=== PATIENT | female | born 1960 | race Caucasian/White ===

== ENCOUNTER 2021-01-11 13:57 | Emergency (ER) | payer OTHER ==
[~2021-01-11] VITALS: Ht 165.1 cm; Wt 109.3 kg
[2021-01-11] MEDS ORDERED: METOPROLOL TART25 MG PO (14:07)
[2021-01-11] MEDS ORDERED: ONDANSETRON ODT4 MG PO (14:07)
[2021-01-11] MEDS ORDERED: FUROSEMIDE20 MG PO (14:07)
[2021-01-11] MEDS ORDERED: POTASSIUM CHLO20 ME2 PO (14:07)
[2021-01-11] MEDS ORDERED: ATORVASTATIN CA40 MG PO (14:08)
[2021-01-11] MEDS ORDERED: OXYCODONE HCL5 MG PO (14:08)
[2021-01-11] MEDS ORDERED: PACERONE200 MG PO (14:08)
[2021-01-11] MEDS ORDERED: WARFARIN SODIUM3 MG PO (14:08)
[2021-01-11] MEDS ORDERED: FLUOXETINE HCL10 MG PO (14:09)
[2021-01-11] MEDS ORDERED: TRULICITY1.5 MG/0.5 SQ (14:09)
[2021-01-11] MEDS ORDERED: VENTOLIN HFA18 GM INH (14:09)
[2021-01-11] MEDS ORDERED: VALSARTAN160 MG PO (14:10)
[2021-01-11] MEDS ORDERED: METFORMIN HCL500 M1 PO (14:10)
[2021-01-11] MEDS ORDERED: TRAZODONE HCL150 MG PO (14:10)
--- NOTE | 2021-01-12 07:30 | EKG ---
[facility] [address] [facility] [place], [place] [address] Signed Normal sinus rhythm Normal ECG No previous ECGs available Confirmed by BRIELLE SHANE MD ([id number]) on 01/12/2021 7:30:09 AM Electronically Signed By: BRILELE SHANE MD 01/12/21 0730 PATIENT NAME: TERRY PEREZ Electrocardiogram DATE OF : 58 PHYSICIAN: BRIELLE SHANE MD REPORT #: [id number] REPORT IS CONFIDENTIAL AND NOT TO BE RELEASED WITHOUT AUTHORIZATION
[2021-01-27] MEDS ORDERED: BUSPIRONE HCL10 MG PO (15:33)
== END 2021-01-11 17:40 | disposition home or self-care (01) ==
LOC: ED 13:57
DX: E87.70 Fluid overload, unspecified (principal); R60.0 Localized edema; I10 Essential (primary) hypertension; Z87.891 Personal history of nicotine dependence; Z88.5 Allergy status to narcotic agent; Z79.899 Other long term (current) drug therapy; Z79.01 Long term (current) use of anticoagulants; Z79.84 Long term (current) use of oral hypoglycemic drugs
CPT/HCPCS: 71045; 80048; 85025; 85610; 93005; 93010; 96374; 99285-25; J1940

== ENCOUNTER 2021-09-04 15:39 | Emergency (ER) | payer OTHER ==
[~2021-09-04] VITALS: Ht 165.1 cm; Wt 109.3 kg
[~2021-09-04 15:39] MED LIST: ATORVASTATIN CA40 MG PO; BUSPIRONE HCL10 MG PO; FLUOXETINE HCL10 MG PO; FLUOXETINE HCL20 MG PO; FUROSEMIDE20 MG PO; METFORMIN HCL500 M1 PO; METOPROLOL TART25 MG PO; ONDANSETRON ODT4 MG PO; OXYCODONE HCL5 MG PO; PACERONE200 MG PO; POTASSIUM CHLO20 ME2 PO; TRAZODONE HCL150 MG PO; TRULICITY1.5 MG/0.5 SQ; VALSARTAN160 MG PO; VENTOLIN HFA18 GM INH; WARFARIN SODIUM3 MG PO
== END 2021-09-04 18:49 | disposition home or self-care (01) ==
LOC: ED 15:39
DX: S00.83XA Contusion of other part of head, initial encounter (principal); S09.90XA Unspecified injury of head, initial encounter; I10 Essential (primary) hypertension; E11.9 Type 2 diabetes mellitus without complications; E78.00 Pure hypercholesterolemia, unspecified; Z87.891 Personal history of nicotine dependence; Z88.5 Allergy status to narcotic agent; Z79.899 Other long term (current) drug therapy; Z79.01 Long term (current) use of anticoagulants; W22.8XXA Striking against or struck by other objects, initial encounter
CPT/HCPCS: 36415; 70450; 85610; 99284-25

== ENCOUNTER 2022-04-27 07:20 | Day surgery (SDC) | payer OTHER ==
[~2022-04-27] VITALS: Ht 165.1 cm; Wt 105.0 kg
[~2022-04-27 07:20] MED LIST changes: +ATORVASTATIN CA80 MG PO; +BIOTIN10 MG PO; +COLLAGEN 15001 EACH PO; +DAILY VALUE1 EACH PO; +HYDROCHLOROTHIA25 MG PO; +TRULICITY1.5 MG/0.5 SUB-Q; +VITAMIN C1000 MG PO
--- NOTE | 2022-04-27 09:26 | NUR ---
04/27/22 0926 Molly Soriano 0900 PT ARRIVED IN PACU SLEEPY. ABD SOFT AND PASSING FLATUS. 0915 DR AT BEDSIDE. ALL QUESTIONS ANSWERED. 919 SITTING AT SIDE OF BED GETTING DRESSED. 924 DC INSTRUCTIONS GIVEN.
--- NOTE | 2022-04-27 09:51 | OR ---
[facility] [address] [place], [place] [address] Signed DATE OF OPERATION: 04/27/2022 SURGEON: Dorothy Birmingham MD PREOPERATIVE DIAGNOSES: 1. Positive Cologuard test. 2. History of hyperplastic rectal polyps in 2009 at age 49. POSTOPERATIVE DIAGNOSES: 1. 4 mm polyp at 15 cm (rectosigmoid junction). 2. 4 mm polyp at 25 cm. 3. 5 mm polyp at mid right colon next. 4. 5 mm polyp at proximal transverse colon. 5. 4 mm polyp at 30 cm. 6. 3 mm polyp at 4 cm. 7. Minimal to moderate left-sided diverticulosis. 8. Minimal internal hemorrhoids with associated skin tags. PROCEDURE: Colonoscopy with hot biopsy. ESTIMATED BLOOD LOSS: None. INDICATIONS: Lynn is a 61-year-old obese diabetic female, asked to see me for a followup colonoscopy. She underwent screening colonoscopy in 2009 at the age of 49. She had several small hyperplastic rectal polyps removed. She missed a 10-year followup james because of COVID pandemic. 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 She has been on Coumadin. She has been doing great since her surgery about a year or so ago. More recently, her Cologuard test came back positive. She is also on Coumadin. She has no lower GI complaints. She has no family history of colon cancer or polyps. She was asked to see me in the office. I gave her a pamphlet on colonoscopy. We had reviewed the nature of that test. She understands there is risk including, but not limited to gas bloating, crampy abdominal pain, bleeding, perforation requiring surgery, and missed diagnosis. We did have her hold the Coumadin 4 days prior to the procedure. She was also given preoperative IV antibiotic for her heart valve. She also understands the need for IV conscious sedation. She has done well with Versed and fentanyl in the past. We went ahead and decided to go that route on this occasion. Fortunately, she is easy to pass the scope and she did quite well. Although as she gets older, she might Electronically Signed By: DOROTHY BIRMINGHAM MD 04/27/22 0951 PATIENT NAME: LYNN PEREZ OPERATIVE REPORT DATE OF : 58 REPORT #: [id number] PHYSICIAN: DOROTHY BIRMINGHAM MD PCP: SHILOH ARROYO MD REPORT IS CONFIDENTIAL AND NOT TO BE RELEASED WITHOUT AUTHORIZATION [facility] [address] [place] [id number] Signed have to convert to monitored anesthesia care given her body mass index and her complex past medical history. I did review that with Lynn today as well. She had expressed understanding and wishes to proceed. PROCEDURE NOTE: Lynn was taken into our endoscopy suite and placed in the left lateral decubitus position. She was given 150 mcg of fentanyl and 6 mg of Versed to cover the case. The scope had been passed all around into the cecum under direct visualization of the camera. It took just a little abdominal compression and some additional sedation in order to get the camera into the cecum itself. Her prep was good. We could easily see the appendiceal orifice and the ileocecal valve. The scope was then slowly withdrawn. We took pictures throughout for photodocumentation. We removed the above mentioned polyps with the help of hot biopsy forceps. She does have diverticula in the left sigmoid colon. They are minimal to moderate in size and minimal to moderate in number and scattered about. In the rectum, the scope was retroflexed and she has minimal internal hemorrhoid tissue associated with several small internal anal skin tags. After this, the gas was suctioned out and the colonoscope removed. Lynn tolerated the procedure quite well. RECOMMENDATIONS: I will see Lynn back in my office in 7 to 14 days to review her results. Dorothy Birmingham MD ALB/MODL /[id number] cc: MD Dorothy Bond MD Copies: DOROTHY BIRMINGHAM MD ~ Electronically Signed By: DOROTHY BIRMINGHAM MD 04/27/22 0951 PATIENT NAME: LYNN PEREZ OPERATIVE REPORT DATE OF : 58 REPORT #: [id number] PHYSICIAN: DOROTHY BIRMINGHAM MD PCP: SHILOH ARROYO MD REPORT IS CONFIDENTIAL AND NOT TO BE RELEASED WITHOUT AUTHORIZATION
--- NOTE | 2022-04-29 16:54 | PATH ---
[facility] [address] [place], [place] [address] Signed SPECIMEN(S): A RECTOSIGMOID COLON POLYP SPECIMEN(S): B COLON POLYP AT 25 CM SPECIMEN(S): C MID ASCENDING/RIGHT COLON POLYP SPECIMEN(S): D PROXIMAL TRANSVERSE COLON POLYP SPECIMEN(S): E SIGMOID POLYP AT 30 CM SPECIMEN(S): F RECTAL POLYP AT 4 CM SPECIMEN SOURCE: A. RECTOSIGMOID COLON POLYP B. COLON POLYP AT 25 CM C. MID ASCENDING/RIGHT COLON POLYP D. PROXIMAL TRANSVERSE COLON POLYP E. SIGMOID POLYP AT 30 CM F. RECTAL POLYP AT 4 CM CLINICAL HISTORY: History of rectal polyps, Cologuard positive. Postop: Diverticulosis, internal hemorrhoids, polyps, and skin tag FINAL PATHOLOGIC DIAGNOSIS: A. Colon, rectosigmoid, polypectomy: - Hyperplastic polyp. B. Colon, 25 cm, polypectomy: - Hyperplastic polyp. C. Colon, mid ascending/right, polypectomy: - Tubular adenoma. D. Colon, proximal transverse, polypectomy: - Tubular adenoma. E. Colon, sigmoid at 30 cm, polypectomy: - Hyperplastic polyp. F. Rectum, 4 cm, polypectomy: - Hyperplastic polyp. BRP:[facility]:C2NR MICROSCOPIC EXAMINATION: Histologic sections of all submitted blocks are examined by light microscopy. These findings, together with the gross examination, support the pathologic diagnosis. GROSS DESCRIPTION: Six specimens are received in six containers, labeled "London Whitfield" PATIENT NAME: TERRY WHITFIELD PATHOLOGY DATE OF : 58 REPORT #: [id number] PHYSICIAN: BRISEIDA BRIDGES PCP: SHILOH ARROYO MD REPORT IS CONFIDENTIAL AND NOT TO BE RELEASED WITHOUT AUTHORIZATION [facility] [address] [place], [place] [address] Signed A. The specimen, labeled "Tyree Whitfield, #1," and designated on the requisition "rectosigmoid colon polyp," is received in formalin and consists of one estrada soft tissue fragment that measures 0.3 cm in greatest dimension. The specimen is entirely submitted in cassette (A1). B. The specimen, labeled "Tyree Whitfield, #2," and designated on the requisition "colon polyp at 25 cm," is received in formalin and consists of two estrada soft tissue fragments that measure 0.4 and 0.5 cm in greatest dimension. The specimen is entirely submitted in cassette (B1). C. The specimen, labeled "Tyree Whitfield, #3," and designated on the requisition "mid ascending/right colon polyp," is received in formalin and consists of two estrada soft tissue fragments that measure 0.3 and 0.4 cm in greatest dimension. The specimen is entirely submitted in cassette (C1). D. The specimen, labeled "Nahid, Tyree, #4," and designated on the requisition "proximal transverse colon polyp," is received in formalin and consists of one estrada soft tissue fragment that measures 0.4 cm in greatest dimension. The specimen is entirely submitted in cassette (D1). E. The specimen, labeled "Tyree Whitfield, #5," and designated on the requisition "sigmoid polyp at 30 cm," is received in formalin and consists of one estrada soft tissue fragment that measures 0.3 cm in greatest dimension. The specimen is entirely submitted in cassette (E1). F. The specimen, labeled "Tyree Whitfield, #6," and designated on the requisition "rectal polyp at 4 cm," is received in formalin and consists of one estrada soft tissue fragment that measures 0.4 cm in greatest dimension. The specimen is entirely submitted in cassette (F1). FB (under the direct supervision of a pathologist) The Gross Description was prepared using a voice recognition system. The report was reviewed for accuracy; however, sound-alike word errors, addition and/or deletions may occur. If there is any question about this report, please contact Client Services. PERFORMING LABORATORY: The technical component was performed by [facility], [address] [place] [address] (CLIA# [id number]). Professional interpretation was performed by [facility], [address] [place] [address] (CLIA# [id number]). Diagnostician: Garcia Barbosa MD Pathologist Electronically Signed 04/29/2022 PATIENT NAME: TERRY WHITFIELD PATHOLOGY DATE OF : 58 REPORT #: [id number] PHYSICIAN: BRISEIDA PATHOLOGY PCP: SHILOH ARROYO MD REPORT IS CONFIDENTIAL AND NOT TO BE RELEASED WITHOUT AUTHORIZATION [facility] [address] [place] [address] Signed Copies: ~ PATIENT NAME: TERRY WHITFIELD PATHOLOGY DATE OF : 58 REPORT #: [id number] PHYSICIAN: BRISEIDA PATHOLOGY PCP: SHILOH ARROYO MD REPORT IS CONFIDENTIAL AND NOT TO BE RELEASED WITHOUT AUTHORIZATION
== END 2022-04-27 09:30 | disposition home or self-care (01) ==
LOC: DS 07:20
PROVIDERS: ATTEND Colon & Rectal Surgery
PROC: 0DBL8ZZ Excision of Transverse Colon, Via Natural or Artificial Opening Endoscopic (ICD-10-PCS; 2022-04-27)
PROC: 0DBN8ZZ Excision of Sigmoid Colon, Via Natural or Artificial Opening Endoscopic (ICD-10-PCS; 2022-04-27)
PROC: 0DBM8ZZ Excision of Descending Colon, Via Natural or Artificial Opening Endoscopic (ICD-10-PCS; 2022-04-27)
PROC: 0DBK8ZZ Excision of Ascending Colon, Via Natural or Artificial Opening Endoscopic (ICD-10-PCS; principal; 2022-04-27 08:15)
DX: D12.2 Benign neoplasm of ascending colon (principal); D12.3 Benign neoplasm of transverse colon; R19.5 Other fecal abnormalities; Z86.010 Personal history of colon polyps; E66.9 Obesity, unspecified; Z68.38 Body mass index [BMI] 38.0-38.9, adult; E11.9 Type 2 diabetes mellitus without complications; Z95.2 Presence of prosthetic heart valve; K57.30 Diverticulosis of large intestine without perforation or abscess without bleeding; K64.8 Other hemorrhoids; K62.1 Rectal polyp
CPT/HCPCS: 99153; G0500; J0690; J2250; J3010; J7121